=== PATIENT | male | born 1970 | race Caucasian/White ===

== ENCOUNTER 2022-08-05 13:20 | Emergency (ER) | payer SELFPAY ==
[2022-08-05] MEDS ORDERED: Lidocaine 1% with EPINEPHrine 1:100,000 10 ML MDV INJECT ONE (13:42)
[2022-08-05] MEDS ORDERED: Lidocaine 1% with EPINEPHrine 1:100,000 20 ML MDV ONE (13:50)
[2022-08-05] MEDS ORDERED: Lidocaine 1% with EPINEPHrine 1:100,000 20 ML MDV INJECT ONE (13:51)
== END 2022-08-05 14:52 | disposition home or self-care (01) ==
LOC: MW.ED 13:20
DX: S01.01XA Laceration without foreign body of scalp, initial encounter (principal); V59.9XXA Occupant (driver) (passenger) of pick-up truck or van injured in unspecified traffic accident, initial encounter; Y92.410 Unspecified street and highway as the place of occurrence of the external cause
CPT/HCPCS: 12002; 12013; 70450; 70450-26; 99283; 99284; J3490